=== PATIENT | female | born 1955 | race Caucasian/White ===

== ENCOUNTER → 2021-05-08 | Outpatient (CLI) | payer BC, MEDICARE ==
--- NOTE | 2021-05-08 12:28 | RAD ---
CT HEAD/BRAIN WO Date: 05/08/2021 12:06 PM Clinical Indication: HEADACHE / Spl. Instructions: / History: Comparison: None. Technique: 5 mm axial tomographic images were obtained of the head without contrast. These were view ed on brain and bone windows. One or more of the following dose reduction techniques were utilized: A utomated exposure control (AEC), Adjustment of mA and/or kV according to patient size, Use of iterati ve reconstruction technique such as ASiR, CT scan done according to ALARA and image gently/image tracy ly Findings: The brain parenchyma is normal in attenuation. No intra- or extra-axial mass or fluid collection. No acute hemorrhage. The ventricles are normal in size, shape, and morphology. The richardson-white matter vanessa ction is normal. The subarachnoid cisterns are patent. The visualized paranasal sinuses are normal. The visualized portions of the orbits and globes are no rmal. The mastoid air cells are clear. The phlebotomy technologist topogram shows no lytic lesion or fracture. Impression: No acute intracranial process. Electronically signed by: Madi Reyes MD (05/08/2021 12:25 PM) [id number]
--- NOTE | 2021-05-08 12:32 | RAD ---
EXAM: XR CHEST 2V 05/08/2021 12:06 PM CLINICAL INDICATION: Shortness of air COMPARISON: None TECHNIQUE: PA and lateral views of the chest FINDINGS: The heart and mediastinum are normal. Lungs are adequately expanded. Mild bilateral inters titial prominence. Probable calcified granuloma in the left lung base. No focal consolidation, pleura l effusion or pneumothorax. There is thoracic kyphosis with moderate degenerative disc disease. Jane cystectomy clips are noted. IMPRESSION: Mild bilateral interstitial prominence could be seen with chronic interstitial changes o r atypical infection. Electronically signed by: Cookie Finnegan MD (05/08/2021 12:30 PM) [id number]
== END ==
LOC: CT 11:59
PROVIDERS: ATTEND Specialist
DX: R51.9 Headache, unspecified (principal)
CPT/HCPCS: 70450; 71046

== ENCOUNTER → 2021-07-23 | Outpatient (CLI) | payer BC, MEDICARE ==
--- NOTE | 2021-07-24 08:40 | RAD ---
CT LOW DOSE LUNG SCREEN dated 07/23/2021 5:06 PM Indication:Reason: SOLITARY PULMONARY NODULE - SCANNED UNDER LUNG NODULE PROTOCOL / Spl. Instructions : SMOKER X 20 YEARS, 1/2 PK DAY / History: Comparison: No comparison is available. Technique: Helical noncontrast low-dose CT images were performed. Sagittal and coronal reconstruction s were obtained. One or more of the following individualized dose reduction techniques were utilized for this examinat ion: 1. Automated exposure control 2. Adjustment of the mA and/or kV according to patient size 3. Use of iterative reconstruction technique Findings: There are some peripheral linear areas of density suggesting scarring or atelectasis. There are some tiny left lung nodules. A 2 mm nodule is seen laterally in the left lower lobe (image 180 of axial se kj [id number]). A similar nodule is seen in the left upper lobe and measures about 3 mm (image 113). No si gnificant mass or nodule is seen. The central airways show no obstruction. No enlarged axillary lymph nodes are seen. Evaluation of the kulwant and mediastinum is somewhat limited by lack of IV contrast. T here is no obvious hilar adenopathy. There may be some enlarged mediastinal nodes. There is a nodular structure anterior to the upper thoracic spine and apparently separate from the esophagus (image 73) . This measures about 1.4 cm. Internal density averages around -3 Hounsfield units. A similar structu re is shown just below this and adjacent to the aorta and azygos vein. This measures about 1.6 cm, wi th internal density of about 3 Hounsfield units. A third similar structure is seen in the lower chest nearly in a retrocrural location. This also measures about 1.6 cm. This has internal density of abou t 10 Hounsfield units. There may be an additional similar nodule more superiorly in the mediastinum b ehind the esophagus. Images through the upper abdomen show evidence of prior surgery along the posterior margin of the eloy er and in the left upper quadrant. The spleen appears smaller may have been partly resected. There is a nodule in the lower outer right breast measuring about 1.5 cm. IMPRESSION: There are some tiny lung nodules that are likely benign. There are mediastinal nodules. Although adenopathy is possible, these have low internal density, whic h may indicate internal fluid, or they could relate to the lymphatic system and indicate focal dilata tion. Congenital cyst such as bronchogenic cyst or duplication cyst are possible as well. There is an indeterminate right breast nodule. The patient has not had recent mammography, this shoul d be considered. Lung RADS category 2S. Electronically signed by: Seun Estrada Jr., MD (07/24/2021 8:38 AM) [id number]
== END ==
LOC: CT 17:00
PROVIDERS: ATTEND Specialist
DX: F17.210 Nicotine dependence, cigarettes, uncomplicated (principal); R91.8 Other nonspecific abnormal finding of lung field; N63.10 Unspecified lump in the right breast, unspecified quadrant
CPT/HCPCS: 71271